=== PATIENT | female | born 1935 | race Caucasian/White ===

== ENCOUNTER 2021-02-18 15:08 | Inpatient (IN) | payer MEDICARE ==
[~2021-02-18] VITALS: Ht 152.4 cm; Wt 84.5 kg
--- NOTE | 2021-02-18 15:25 | NUR ---
Pt arrives via [facility] from [facility]. Possible GI bleed. Threw up coffee ground emesis today with some bright red blood at about 1000. Currently denies nausea or any pain. Hx 2MI's, bleeding ulcer. H+H 10+30 at [place]. 1G rocephin, 80 protonix, 4 zofran, 900mL fluid given [employer]. [address] Hooked up to monitor- Junctional tach rhythm. Pt on 2L oxygen nasal cannula satting 100%. Blood sugar 400 [employer].
--- NOTE | 2021-02-18 15:27 | NUR ---
Lab at bedside.
[2021-02-18] MEDS ORDERED: PANTOPRAZOLE 80 MG in SODIUM CHLORIDE 0.9% 100 ML IV SCH (15:30)
--- NOTE | 2021-02-18 15:39 | NUR ---
Protonix infusing per [facility]MAR.
--- NOTE | 2021-02-18 15:43 | NUR ---
Robert azar in [facility] - 02/18/21 at 1606 by OTTO Protonix started maria guadalupe Rivera
[2021-02-18 15:50] LABS: BASOPHILS % (AUTO) 1 % (0-1); EOSINOPHILS % (AUTO) 0 % (1-7); LYMPHOCYTES % (AUTO) 17 % (22-44); MEAN CORPUSCULAR HEMOGLOBIN 30.6 pg (27.0-34.8); MEAN CORPUSCULAR HGB CONC 33.6 g/dL (32.4-35.8); MEAN PLATELET VOLUME 8.1 fL (7.4-10.4); MONOCYTES % (AUTO) 5 % (2-9); NEUTROPHILS % (AUTO) 77 % (42-75); PLATELET COUNT 257 x10^3/uL (130-400); RED BLOOD COUNT 3.06 x10^6/uL (3.82-5.3); RED CELL DISTRIBUTION WIDTH 14.1 % (9.6-15.2)
[2021-02-18 15:53] LABS: MD NO
[2021-02-18 15:54] LABS: ALANINE AMINOTRANSFERASE 19 U/L (12-78); ANION GAP 3 mmol/L (5-15); CALCIUM 7.6 mg/dL (8.5-10.1); CHLORIDE 103 mmol/L (98-107); CREATININE 0.72 mg/dL (0.55-1.02)
[2021-02-18 15:57] LABS: ALKALINE PHOSPHATASE 75 U/L (45-117); BILIRUBIN,TOTAL 0.1 mg/dL (0.2-1.0); TOTAL PROTEIN 5.9 g/dL (6.4-8.2)
--- NOTE | 2021-02-18 16:06 | NUR ---
Family at bedside. Pt denies nausea or pain.
[2021-02-18 16:07] LABS: INTERNATIONAL NORMALIZED RATIO 1.05 (0.93-1.1); PROTHROMBIN TIME 11.2 Seconds (9.6-11.5)
[2021-02-18] MEDS ORDERED: SODIUM CHLORIDE FLUSH 10ML SYR IVF PRN (16:30)
--- NOTE | 2021-02-18 16:30 | NUR ---
GI doc at bedside.
--- NOTE | 2021-02-18 16:48 | NUR ---
Report called to [facility].
[2021-02-18] MEDS ORDERED: PRAV80TA2 PO (17:05)
[2021-02-18] MEDS ORDERED: METO50TA82 PO (17:05)
[2021-02-18] MEDS ORDERED: HYDR12.517 PO (17:05)
[2021-02-18] MEDS ORDERED: CLOP75TA52 PO (17:05)
--- NOTE | 2021-02-18 17:05 | NUR ---
Admitting doc at bedside. Med rec done.
[2021-02-18] MEDS ORDERED: GUAIFENESIN/DM 200-20MG, 10ML UDC PO PRN (17:30)
[2021-02-18] MEDS ORDERED: HYDROcodone/APAP 5/325 TABLET PO PRN (17:30)
[2021-02-18] MEDS ORDERED: BUTALB/APAP/CAFFEINE 50MG/325MG/40MG PO PRN ×2 (17:30)
[2021-02-18] MEDS ORDERED: BACLOFEN 10 MG TABLET PO PRN (17:30)
[2021-02-18] MEDS ORDERED: hydrALAzine 20 MG/ML, 1ML IVPush PRN (17:30)
[2021-02-18] MEDS ORDERED: ONDANSETRON ODT 4 MG PO PRN (17:30)
[2021-02-18] MEDS ORDERED: ONDANSETRON 2MG/ML, 2ML IVPush PRN (17:30)
[2021-02-18] MEDS ORDERED: ENALAPRILAT 1.25 MG/ML, 2ML IVPush PRN (17:30)
--- NOTE | 2021-02-18 17:31 | NUR ---
Pt transported to room 404.
[2021-02-18 17:49] VITALS: BP 93/66
[2021-02-18] MEDS: D5%-0.45NACL+KCL 20MEQ 1,000 ML IV SCH (18:11)
[2021-02-18 19:13] VITALS: BP 92/62
[2021-02-18] MEDS: MELATONIN 5 MG TABLET PO SCH (21:42)
[2021-02-19 01:16] VITALS: BP 106/72
[2021-02-19] MEDS: PANTOPRAZOLE 80 MG in SODIUM CHLORIDE 0.9% 100 ML IV SCH ×3 (01:37→23:05)
[2021-02-19] MEDS: D5%-0.45NACL+KCL 20MEQ 1,000 ML IV SCH (04:17)
[2021-02-19 05:08] LABS: BASOPHILS % (AUTO) 1 % (0-1); EOSINOPHILS % (AUTO) 1 % (1-7); LYMPHOCYTES % (AUTO) 34 % (22-44); MEAN CORPUSCULAR HEMOGLOBIN 30.9 pg (27.0-34.8); MEAN CORPUSCULAR HGB CONC 33.9 g/dL (32.4-35.8); MEAN PLATELET VOLUME 8.2 fL (7.4-10.4); MONOCYTES % (AUTO) 11 % (2-9); NEUTROPHILS % (AUTO) 53 % (42-75); PLATELET COUNT 227 x10^3/uL (130-400); RED BLOOD COUNT 2.43 x10^6/uL (3.82-5.3)
[2021-02-19 05:11] LABS: MD NO
[2021-02-19 05:14] LABS: CHLORIDE 106 mmol/L (98-107)
[2021-02-19 05:19] LABS: ALANINE AMINOTRANSFERASE 17 U/L (12-78); ALBUMIN 2.7 g/dL (3.4-5.0); ALKALINE PHOSPHATASE 52 U/L (45-117); ANION GAP 4 mmol/L (5-15); BILIRUBIN,TOTAL 0.1 mg/dL (0.2-1.0); CALCIUM 7.3 mg/dL (8.5-10.1); CREATININE 0.75 mg/dL (0.55-1.02); TOTAL PROTEIN 5.3 g/dL (6.4-8.2)
[2021-02-19 06:50] VITALS: BP 100/69
[2021-02-19] MEDS ORDERED: PROPOFOL 10 MG/ML, 20ML ONE (08:05)
[2021-02-19] MEDS ORDERED: ONDANSETRON 2MG/ML, 2ML IVPush PRN (09:00)
[2021-02-19] MEDS: SENNA/DOCUSATE TABLET PO SCH (09:48)
[2021-02-19] MEDS ORDERED: DEXL30CA2 PO (10:40)
[2021-02-19 12:27] VITALS: BP 95/63
[2021-02-19] MEDS: MOVIPREP POWDER 1 PREP KIT PO SCH (18:48)
[2021-02-19 19:06] VITALS: BP 106/66
[2021-02-19] MEDS: MELATONIN 5 MG TABLET PO SCH (20:42)
[2021-02-20] VITALS (7 sets, daily range): BP systolic 107–132; BP diastolic 68–83
[2021-02-20] MEDS: MOVIPREP POWDER 1 PREP KIT PO SCH (04:00)
[2021-02-20 05:21] LABS: BASOPHILS % (AUTO) 1 % (0-1); EOSINOPHILS % (AUTO) 2 % (1-7); LYMPHOCYTES % (AUTO) 31 % (22-44); MEAN CORPUSCULAR HEMOGLOBIN 30.7 pg (27.0-34.8); MEAN CORPUSCULAR HGB CONC 33.7 g/dL (32.4-35.8); MEAN PLATELET VOLUME 8.1 fL (7.4-10.4); MONOCYTES % (AUTO) 8 % (2-9); NEUTROPHILS % (AUTO) 59 % (42-75); PLATELET COUNT 211 x10^3/uL (130-400); RED BLOOD COUNT 2.06 x10^6/uL (3.82-5.3); RED CELL DISTRIBUTION WIDTH 14.7 % (9.6-15.2)
[2021-02-20 05:32] LABS: CHLORIDE 108 mmol/L (98-107)
[2021-02-20 05:36] LABS: ALBUMIN 2.8 g/dL (3.4-5.0); ANION GAP 5 mmol/L (5-15); CALCIUM 7.9 mg/dL (8.5-10.1); CREATININE 0.63 mg/dL (0.55-1.02)
[2021-02-20 05:41] LABS: MD NO
[2021-02-20] MEDS ORDERED: CHLORHEXIDINE 15 ML UDC ONE (09:26)
[2021-02-20] MEDS ORDERED: CHLORHEXIDINE 15 ML UDC PO ONE (09:30)
[2021-02-20] MEDS: SENNA/DOCUSATE TABLET PO SCH (09:39)
[2021-02-20] MEDS ORDERED: MIDAZOLAM 1 MG/ML, 2ML ONE (09:50)
[2021-02-20] MEDS ORDERED: FENTANYL PF 100 MCG/2ML ONE (09:50)
[2021-02-20] MEDS ORDERED: LABETALOL 5MG/ML, 20ML IV PRN (10:00)
[2021-02-20] MEDS ORDERED: FENTANYL PF 100 MCG/2ML IV PRN (10:00)
[2021-02-20] MEDS ORDERED: morphine SULFATE 10 MG/ML, 1ML IVPush PRN (10:00)
[2021-02-20] MEDS ORDERED: hydrALAzine 20 MG/ML, 1ML IV PRN (10:00)
[2021-02-20] MEDS ORDERED: ONDANSETRON 2MG/ML, 2ML IVPush PRN (10:00)
[2021-02-20] MEDS ORDERED: PROMETHAZINE 25 MG/ML, 1ML IVPush PRN (10:00)
[2021-02-20] MEDS ORDERED: OXYcodone 5 MG/5 ML ORAL.SOL UDC PO PRN (10:00)
[2021-02-20] MEDS ORDERED: PROPOFOL 10 MG/ML, 20ML ONE (10:29)
[2021-02-20] MEDS: PANTOPRAZOLE 80 MG in SODIUM CHLORIDE 0.9% 100 ML IV SCH (12:41)
[2021-02-20] MEDS ORDERED: SIMETHICONE DROPS 40 MG/0.6 ML BOTTLE ONE (12:53)
[2021-02-20] MEDS: INSULIN LISPRO 100 UNITS/ML, PEN SQ-INSULIN SCH ×3 (13:09→21:53)
[2021-02-20] MEDS: PANTOPRAZOLE 40MG TABLET PO SCH (17:02)
[2021-02-20] MEDS: MELATONIN 5 MG TABLET PO SCH (20:46)
[2021-02-21 00:13] VITALS: BP 101/66
[2021-02-21] MEDS: PANTOPRAZOLE 40MG TABLET PO SCH (05:19)
[2021-02-21 06:08] LABS: BASOPHILS % (AUTO) 1 % (0-1); EOSINOPHILS % (AUTO) 3 % (1-7); LYMPHOCYTES % (AUTO) 28 % (22-44); MEAN CORPUSCULAR HEMOGLOBIN 29.7 pg (27.0-34.8); MEAN CORPUSCULAR HGB CONC 33.5 g/dL (32.4-35.8); MEAN PLATELET VOLUME 7.5 fL (7.4-10.4); MONOCYTES % (AUTO) 9 % (2-9); NEUTROPHILS % (AUTO) 60 % (42-75); PLATELET COUNT 196 x10^3/uL (130-400); RED BLOOD COUNT 2.47 x10^6/uL (3.82-5.3); RED CELL DISTRIBUTION WIDTH 16.8 % (9.6-15.2)
[2021-02-21 06:10] LABS: MD NO
[2021-02-21 06:58] VITALS: BP 122/77
[2021-02-21] MEDS: SENNA/DOCUSATE TABLET PO SCH (07:10)
[2021-02-21] MEDS: INSULIN LISPRO 100 UNITS/ML, PEN SQ-INSULIN SCH ×2 (07:58→11:18)
== END 2021-02-21 11:40 | disposition home or self-care (01) | DRG 378 ==
LOC: ED 16:36 → EDIP 17:10 → 4WST 17:41 → DCLOUNGE 02-21 11:34
PROVIDERS: ADMIT Family Medicine; ATTEND Hospitalist
PROC: 0DB68ZX Excision of Stomach, Via Natural or Artificial Opening Endoscopic, Diagnostic (ICD-10-PCS; principal; 2021-02-19 09:00)
PROC: 0DBK8ZZ Excision of Ascending Colon, Via Natural or Artificial Opening Endoscopic (ICD-10-PCS; 2021-02-20)
PROC: 0DBN8ZZ Excision of Sigmoid Colon, Via Natural or Artificial Opening Endoscopic (ICD-10-PCS; 2021-02-20)
PROC: 30233N1 Transfusion of Nonautologous Red Blood Cells into Peripheral Vein, Percutaneous Approach (ICD-10-PCS; 2021-02-20)
DX: K25.4 Chronic or unspecified gastric ulcer with hemorrhage (principal); D62 Acute posthemorrhagic anemia; K57.31 Diverticulosis of large intestine without perforation or abscess with bleeding; E11.65 Type 2 diabetes mellitus with hyperglycemia; I25.10 Atherosclerotic heart disease of native coronary artery without angina pectoris; I25.2 Old myocardial infarction; Z95.5 Presence of coronary angioplasty implant and graft; K64.8 Other hemorrhoids; R79.89 Other specified abnormal findings of blood chemistry; K63.5 Polyp of colon; Z20.822 Contact with and (suspected) exposure to COVID-19
CPT/HCPCS: 36415; 80053; 80069; 82962; 83036; 83690; 83735; 85014; 85018; 85025; 85610; 85730; 86850; 86900; 86923; 87635; 88305; 88342; 93005; G0378; J2250; J2704; J3010; C9113; J1815; J3480; P9016